=== PATIENT | female | born 1975 | race Caucasian/White ===

== ENCOUNTER 2017-04-23 21:19 | Observation (INO) | payer BC ==
[~2017-04-23 21:19] MED LIST: ISOVUE-370 76%-LOCM 1 ML ONE; Iopamidol 370 76% 50 ML VIAL FS ONE
[2017-04-23] MEDS ORDERED: Ondansetron HCl/PF 4 MG/2 ML Vial ONE (22:22)
[2017-04-23 22:33] LABS: #Basophils 0.1 thou/uL (0.0-0.2); #Lymphocytes 1.1 thou/uL (1.20-3.40); #Monocytes 0.6 thou/uL (0.11-0.59); #Neutrophils 4.8 thou/uL (1.40-6.50); %Basophils 1.6 % (0.0-1.0); %Eosinophils 0.5 % (0.0-10.0); %Lymphocytes 16.5 % (21.0-51.0); %Monocytes 9.1 % (0.0-10.0); %Neutrophils 72.3 % (42.0-75.0); Hemoglobin 13.8 g/dL (12.0-16.0); Mean Corpuscular HGB CONC 32.6 g/dL (32.0-36.0); Mean Corpuscular Hemoglobin 28.2 pg (27.0-31.0); Mean Corpuscular Volume 86.5 fl (81.0-99.0); Mean Platelet Volume 7.8 fL (7.4-10.4); Platelet Count 246 thou/uL (130-400); RBC Distribution Width 14.7 % (11.5-14.5); Red Blood Cell (RBC) Count 4.89 mill/uL (4.20-5.40); White Blood Cell (WBC) Count 6.6 thou/uL (4.8-10.8)
[2017-04-23 22:50] LABS: ALT (SGPT) 53 U/L (8-55); AST (SGOT) 55 U/L (5-34); Albumin 4.6 g/dL (3.5-5.0); Alkaline Phosphatase 63 U/L (40-150); Anion Gap 21 mmol/L (10-20); BUN (Urea Nitrogen) 10 mg/dL (7.0-18.7); Bilirubin, Total 0.7 mg/dL (0.2-1.2); Calc. Creatinine Clearance 0 mL/min (70-130); Calcium 10.4 mg/dL (7.8-10.44); Carbon Dioxide 21 mmol/L (22-29); Chloride 99 mmol/L (98-107); Estimated GFR-MDRD 79; Glucose 116 mg/dL (70-105); Lipase 28 U/L (8-78); Potassium 4.6 mmol/L (3.5-5.1); Protein, Total 8.6 g/dL (6.0-8.3); Sodium 136 mmol/L (136-145)
--- NOTE | 2017-04-24 00:03 | CT ---
CT ABDOMEN AND PELVIS 04/23/17 COMPARISON: 09/07/11 HISTORY: Episodic abdominal pain and nausea for two day, prior gastric bypass. TECHNIQUE: Serial axial CT imaging obtained at 5 mm intervals from lung bases through pubic symphysis with IV an d oral contrast. Coronal reformatted imaging obtained. FINDINGS: Imaged lung bases are unremarkable. No free intraperitoneal air is noted. The hepatic parenchyma is hypodense, suggesting a degree of steatosis. Gallbladder and spleen appear grossly unremarkable. Pancreas bilateral adrenal gland and bilateral kidneys are unremarkable. There is a low density lesion in the left hemipelvis which appears to emanate from the left ovary, wi th Hounsfield units of approximately 15-20. This lesion measures up to 4.2 cm and suggests a prominen t left ovarian cyst. There is small volume nonspecific free fluid in the pelvic cul-de-sac. There is a gastric suture line with a gastrojejunostomy as well as a jejunojejunostomy, consistent with the pr ovided history of gastric bypass surgery. There is ingested contrast media within the stomach and pro ximal small bowel just distal to the gastrojejunostomy. The bowel which contains contrast media is di lated up to 4.5 cm. There is an abrupt transition from dilated contrast filled small bowel to decompr essed small bowel in the mid left abdomen, best seen on axial image 33 and coronal image 72 suggestin g a small bowel obstruction. The small bowel distal to this is decompressed and does not contain cont rast media. No lymphadenopathy is seen in the abdomen or pelvis. The vascular structures appear paten t. Osseous structures demonstrate no worrisome lytic or blastic bone lesions. Lower lumbar spine face t hypertrophic changes are present. IMPRESSION: 1. Dilated proximal small bowel with abrupt transition to decompressed small bowel in the mid le ft abdomen suggesting small bowel obstruction which may be on the basis of anastomotic narrowing, int ernal hernia or small bowel obstruction associated with adhesions given prior surgery. 2. Small volume free fluid in the pelvic cul-de-sac, nonspecific. 3. Findings suggesting a 4.2 cm cyst within the left ovary. POS: TIM
[2017-04-24 01:23] VITALS: BMI 37.0
[2017-04-24] MEDS ORDERED: Ketorolac Tromethamine 30 MG/ML VIAL IVP PRN ×2 (01:32→07:17)
[2017-04-24] MEDS ORDERED: Ondansetron ODT 4 MG TAB SL PRN (01:34)
[2017-04-24] MEDS ORDERED: Ondansetron HCl/PF 4 MG/2 ML Vial IVP PRN ×2 (01:34→07:17)
[2017-04-24] MEDS ORDERED: Sodium Chloride 0.9% 1,000 ML IV SCH (01:34)
--- NOTE | 2017-04-24 07:37 | HP ---
CHIEF COMPLAINT: Abdominal pain. HISTORY OF PRESENT ILLNESS: The patient is a 41-year-old female who underwent a laparoscopic Anthony-en -Y gastric bypass in about 2001. She says she did fine until she became in 2006. She deliv ered by and after that, she started having intermittent pain that over the years has become a little bit more frequent. She would usually treat this herself by stopping eating and it would re solve on its own. This time, about 3 days ago, the pain seemed a little worse. The pain is describe d as central abdominal pain sometimes to the left and radiates into the pelvis. She said she did hav e nausea, but really no vomiting until yesterday in the ER when she drank contrast. She vomited abou t half an emesis bag and then felt better. She often has hyperactive bowel sounds that come in waves . She passed flatus last night. Her last bowel movement was Saturday. No fevers or chills. No yordy ck or bloody stools. PAST MEDICAL HISTORY: Obesity. PAST SURGICAL HISTORY: section x2, bilateral tubal ligation, Anthony-en-Y gastric bypass, yuniel st reconstruction, tonsil and adenoidectomy, PE tubes and tympanoplasty. MEDICATIONS: Pepcid Complete. ALLERGIES: No known drug allergies. SOCIAL HISTORY: She is a nurse. She drinks alcohol on occasion. No tobacco. FAMILY HISTORY: Diabetes and hypertension. PHYSICAL EXAMINATION: VITAL SIGNS: Temperature 98.1, pulse 94, blood pressure 140/96. GENERAL: She is awake and alert. Does not appear to be in any distress. HEENT: Unremarkable. LUNGS: Clear. HEART: Regular rate and rhythm. ABDOMEN: Soft, obese, nontender, good bowel sounds or active bowel sounds, no palpable hernias. EXTREMITIES: Unremarkable. LABORATORY DATA AND IMAGING: Her white count is 6.6, H&H is 13 and 42, platelet count 246. Electrol ytes show an elevated glucose at 116. Her CO2 is diminished at 21. Her creatinine is 0.8 and her BU N is 10. CT scan shows a dilated Anthony limb with a transition zone in the pelvis. ASSESSMENT: Adhesion versus anastomotic stricture. PLAN: I will review this with the radiologist. We will consider a Gastrografin swallow.
[2017-04-24] MEDS ORDERED: Pantoprazole 40 MG VIAL IVP SCH (09:00)
[2017-04-24] MEDS: D5 1/2 NS w/20 mEq KCL 1,000 ML IV SCH ×2 (09:50→16:28)
--- NOTE | 2017-04-24 11:12 | RAD ---
SMALL BOWEL SERIES: History: 41-year-old female with history of small bowel obstruction. Prior gastric bypass. Comparison: Pelvic CT 04-23-17 FINDINGS: Machine Operators film demonstrates some residual barium throughout the entire colon from the prior CT which has completely passed through the small bowel and is in the colon. There is also iodinated contrast media within the bladder. Overhead films were performed at 15 minutes and 1 hour following ingestion of Gastrografin orally. Th ere are post-operative changes of the stomach consistent with gastric bypass with some dilatation of the jejunal loop with some borderline mucosal fold thickening. There is prompt passage of the oral co ntrast through the dilated, as well as the nondilated, distal jejunum and ileum entering the colon by 1 hour. IMPRESSION: Some focal dilatation of the post-operative proximal jejunal loop with some borderline mucosal fold t hickening but no evidence for significant obstruction or delay in contrast passage with ingested oral contrast passing throughout the entire small bowel and well into the colon by 1 hour. POS: TIM
[2017-04-24 12:07] VITALS: BP 133/81; TEMP 98
--- NOTE | 2017-04-24 21:09 | DIS ---
DISCHARGE DIAGNOSIS: Partial small-bowel obstruction. PROCEDURES DURING ADMISSION: Bowel rest, CT scan, small bowel follow through. HOSPITAL COURSE: The patient was admitted. She was placed on bowel rest, started feeling better. S he passed some gas. A small bowel follow through showed no area of obstruction, still little bit of distended bowel. She is feeling fine. She is tolerating liquids. She is discharged home in good co ndition on her usual medications. She will follow up with me in 2 weeks.
== END 2017-04-24 17:45 | disposition home or self-care (01) ==
LOC: ERS 21:19 → SURG B 04-24 00:33
PROVIDERS: ADMIT Surgery; ATTEND Surgery
DX: K56.600 Partial intestinal obstruction, unspecified as to cause (principal); Z98.891 History of uterine scar from previous surgery; Z98.51 Tubal ligation status; Z98.84 Bariatric surgery status; Z98.890 Other specified postprocedural states; Z90.89 Acquired absence of other organs
CPT/HCPCS: 74177; 74250; 80053; 83690; 85025; 96361; 96374; 96375; C9113; G0378; J1885; J2405

== ENCOUNTER 2017-08-10 14:36 | Emergency (ER) | payer BC ==
[2017-08-10] MEDS ORDERED: Lorazepam 2 MG/ML VIAL ONE (15:45)
[2017-08-10 16:27] LABS: #Lymphocytes 1.4 thou/uL (1.20-3.40); #Monocytes 0.4 thou/uL (0.11-0.59); #Neutrophils 3.5 thou/uL (1.40-6.50); %Basophils 0.5 % (0.0-1.0); %Eosinophils 0.4 % (0.0-10.0); %Lymphocytes 26.3 % (21.0-51.0); %Monocytes 7.3 % (0.0-10.0); %Neutrophils 65.6 % (42.0-75.0); Hemoglobin 13.4 g/dL (12.0-16.0); Mean Corpuscular HGB CONC 34.8 g/dL (32.0-36.0); Mean Corpuscular Hemoglobin 29.7 pg (27.0-31.0); Mean Corpuscular Volume 85.2 fl (81.0-99.0); Mean Platelet Volume 7.1 fL (7.4-10.4); Platelet Count 216 thou/uL (130-400); RBC Distribution Width 15.2 % (11.5-14.5); Red Blood Cell (RBC) Count 4.51 mill/uL (4.20-5.40); White Blood Cell (WBC) Count 5.3 thou/uL (4.8-10.8)
--- NOTE | 2017-08-10 16:45 | RAD ---
CHEST TWO VIEW 08/10/17 HISTORY: Palpitations. COMPARISON: None. FINDINGS: Lungs are clear. No pneumothorax or effusion. Cardiac silhouette and mediastinal contours within norm al limits. No acute osseous abnormality. IMPRESSION: No acute intrathoracic abnormality. POS: TIM
[2017-08-10 16:49] LABS: BHCG - Serum Negative (NEGATIVE); Pregs Control Background? CLEAR/WHITE (CLR/WHITE); Pregs Control Bar Appear? YES (CONTROL BAR)
[2017-08-10 16:57] LABS: CKMB 0.9 ng/mL (0-6.6)
[2017-08-10 17:03] LABS: Troponin I Less than 0.010 ng/mL (< 0.028)
[2017-08-10 17:09] LABS: ALT (SGPT) 74 U/L (8-55); AST (SGOT) 147 U/L (5-34); Albumin 4.5 g/dL (3.5-5.0); Alkaline Phosphatase 55 U/L (40-150); Anion Gap 21 mmol/L (10-20); BUN (Urea Nitrogen) 8 mg/dL (7.0-18.7); Bilirubin, Total 0.5 mg/dL (0.2-1.2); Calc. Creatinine Clearance 0 mL/min (70-130); Calcium 9.7 mg/dL (7.8-10.44); Carbon Dioxide 22 mmol/L (22-29); Chloride 100 mmol/L (98-107); Estimated GFR-MDRD 84; Globulin 4.1 g/dL (2.4-3.5); Glucose 100 mg/dL (70-105); Protein, Total 8.6 g/dL (6.0-8.3); Sodium 138 mmol/L (136-145)
[2017-08-10 17:10] LABS: Thyroid Stimulating Hormone 2.2203 uIU/mL (0.35-4.94)
== END 2017-08-10 20:15 | disposition home or self-care (01) ==
LOC: ERS 14:36
DX: F43.9 Reaction to severe stress, unspecified (principal); F32.9 Major depressive disorder, single episode, unspecified; F41.9 Anxiety disorder, unspecified; Z79.899 Other long term (current) drug therapy
CPT/HCPCS: 71046; 80053; 82553; 84443; 84484; 84703; 85025; 93005; 96361; 96374; J2060

== ENCOUNTER 2019-04-15 08:44 | Outpatient (CLI) | payer BC ==
--- NOTE | 2019-04-15 10:16 | ULT ---
RIGHT BREAST ULTRASOUND LEFT BREAST ULTRASOUND: HISTORY: Abnormal mammogram and palpable abnormality at 7 o'clock position of left breast. COMPARISON: Correlation was made with mammograms of the same date. FINDINGS: Sonographic evaluation in the region of palpable concern at the 7 o'clock position of the left breast demonstrates no abnormality. There is a tiny 2 mm cyst at the 10 o'clock position of the right breast in the region of the focal d ensity of the mammogram. IMPRESSION: BIRADS category 2 - benign findings. Return to annual mammographic screening. POS: OFF
--- NOTE | 2019-04-16 12:40 | MMO ---
Bilateral MAMMO Bilat Diag [facility]. CLINICAL HISTORY: Patient is 43 years old and is seen for diagnostic exam and lump or thickening in the left breast at 7 o'clock. The patient has the following family history of breast cancer: maternal grandmother, malignant (generic) and paternal grandmother, malignant (generic). The patient has no personal history of cancer. The patient has a history of bilateral Implants in 2005. VIEWS: The views performed were: bilateral craniocaudal; bilateral mediolateral oblique; bilateral mediolateral; and bilateral Implant displaced with tomosynthesis. FILMS COMPARED: The present examination has been compared to prior imaging studies performed at [facility] on 10/23/2017 and 04/15/2019. This study has been interpreted with the assistance of computer-aided detection. MAMMOGRAM FINDINGS: The breasts are heterogeneously dense, which could obscure a lesion on mammography. Normal implants are present. There is a tiny cyst on US at the 10:00 corresponding to the density on mammo. NO mammo or sono abnormality is seen at site of palpable abnormality (7:00) left breast. There are no suspicious masses, suspicious calcifications, or new areas of architectural distortion. IMPRESSION: THERE IS NO MAMMOGRAPHIC EVIDENCE OF MALIGNANCY. A ROUTINE FOLLOW-UP MAMMOGRAM IN 1 YEAR IS RECOMMENDED. THE RESULTS OF THIS EXAM WERE SENT TO THE PATIENT. ACR BI-RADS Category 2 - Benign finding MAMMOGRAPHY NOTE: 1. A negative mammogram report should not delay a biopsy if a dominant of clinically suspicious mass is present. 2. Approximately 10% to 15% of breast cancers are not detected by mammography. 3. Adenosis and dense breasts may obscure an underlying neoplasm. Reported by: RAJ VALLE MD Electonically Signed: [id number]
== END 2019-04-15 08:45 | disposition home or self-care (01) ==
LOC: BICMAMMO 08:44
PROVIDERS: ATTEND Physician Assistant
DX: N63.24 Unspecified lump in the left breast, lower inner quadrant (principal)
CPT/HCPCS: 77066; G0279

== ENCOUNTER 2022-04-24 07:29 | Outpatient (CLI) | payer BC | END 2022-04-24 07:30 | disposition home or self-care (01) | LOC: RAD 07:29 | PROVIDERS: ATTEND Surgery | DX: K21.9 Gastro-esophageal reflux disease without esophagitis (principal); K21.00 Gastro-esophageal reflux disease with esophagitis, without bleeding; Z98.890 Other specified postprocedural states | CPT/HCPCS: 74220 ==

== ENCOUNTER 2022-06-12 08:12 | Outpatient (CLI) | payer BC | END 2022-06-12 08:13 | disposition home or self-care (01) | LOC: BICMAMMO 08:12 | PROVIDERS: ATTEND Physician Assistant | DX: N63.23 Unspecified lump in the left breast, lower outer quadrant (principal) | CPT/HCPCS: 77066; G0279 ==

== ENCOUNTER 2023-05-06 11:53 | Outpatient (CLI) | payer BC | END 2023-05-06 11:54 | disposition home or self-care (01) | LOC: SCSMRI 11:53 | PROVIDERS: ATTEND Internal Medicine Gastroenterology | DX: K80.50 Calculus of bile duct without cholangitis or cholecystitis without obstruction (principal); R17 Unspecified jaundice; R19.5 Other fecal abnormalities; R16.0 Hepatomegaly, not elsewhere classified; K76.0 Fatty (change of) liver, not elsewhere classified | CPT/HCPCS: 74183 ==

== ENCOUNTER 2023-12-05 09:44 | Outpatient (CLI) | payer BC | END 2023-12-05 09:45 | disposition home or self-care (01) | LOC: BICMAMMO 09:44 | PROVIDERS: ATTEND Physician Assistant | DX: R92.8 Other abnormal and inconclusive findings on diagnostic imaging of breast (principal) | CPT/HCPCS: 77066; G0279 ==

== ENCOUNTER 2023-12-09 07:12 | Day surgery (SDC) | payer BC ==
[2023-12-09 07:51] LABS: #Basophils 0.07 10x3/uL (0.0-0.2); %Basophils 0.5 % (0.0-1.0); %Eosinophils 1.1 % (0.0-10.0); %Lymphocytes 19.5 % (21.0-51.0); %Neutrophils 72.4 % (42.0-75.0); Hematocrit 35.7 % (36.0-47.0); Hemoglobin 11.6 g/dL (12.0-16.0); Mean Corpuscular HGB CONC 32.5 g/dL (32.0-36.0); Mean Corpuscular Hemoglobin 32.1 pg (27.0-31.0); Mean Corpuscular Volume 98.9 fL (78.0-98.0); Platelet Count 203 10x3/uL (130-400); Red Blood Cell (RBC) Count 3.61 mill/uL (4.20-5.40)
[2023-12-09 08:09] LABS: INR-International Normal Ratio 1.1; PTT 32.4 sec (22.9-36.1); Prothrombin Time 14.5 sec (12.0-14.7)
[2023-12-09] MEDS ORDERED: Lidocaine 1% PF 5 ML VIAL ONE (08:56)
[2023-12-09] MEDS ORDERED: Iopamidol 100 ML FS ONE ×2 (08:56→10:46)
[2023-12-09] MEDS ORDERED: Sodium Bicarbonate 0.5 MEQ/ML SDV 10 ML ONE (08:56)
[2023-12-09 08:58] VITALS: BP 124/78; TEMP 98.5
[2023-12-09] MEDS ORDERED: Midazolam HCl 2 mg/2 ml Vial ONE ×2 (10:10→10:23)
[2023-12-09] MEDS ORDERED: fentaNYL 50 mcg/mL 1 mL Vial ONE ×3 (10:10→11:08)
[2023-12-09] MEDS ORDERED: Ondansetron PF 4 MG/2 ML Vial ONE (11:17)
[2023-12-09] MEDS ORDERED: FLU (Fluarix Triv) TS24-25(6MOS UP)/PF 45 MCG/0.5 ML Syringe IM ONE (12:00)
== END 2023-12-09 13:45 | disposition home or self-care (01) ==
LOC: SPEC 07:12
PROVIDERS: ATTEND Family Medicine
DX: K75.81 Nonalcoholic steatohepatitis (NASH) (principal); K83.1 Obstruction of bile duct; E80.6 Other disorders of bilirubin metabolism; K21.9 Gastro-esophageal reflux disease without esophagitis; E03.9 Hypothyroidism, unspecified; E66.01 Morbid (severe) obesity due to excess calories; R73.01 Impaired fasting glucose
CPT/HCPCS: 36011; 37200; 75970; 85025; 85610; 85730; 88307; 88313; 99152; 99153; C1769; C1874; C1887; J2250; J2405; J3010; Q9967

== ENCOUNTER 2025-01-19 13:48 | Outpatient (CLI) | payer BC | END 2025-01-19 13:49 | disposition home or self-care (01) | LOC: BICMAMMO 13:48 | PROVIDERS: ATTEND Physician Assistant | DX: Z12.31 Encounter for screening mammogram for malignant neoplasm of breast (principal); Z80.3 Family history of malignant neoplasm of breast; Z98.82 Breast implant status; Z98.890 Other specified postprocedural states | CPT/HCPCS: 77063; 77067 ==